=== PATIENT | male | born 1950 | race Caucasian/White ===

== ENCOUNTER 2017-09-03 15:29 | Inpatient (IN) | payer MEDICARE, OTHER ==
[~2017-09-03 15:29] MED LIST: ISOVUE-370 76%-LOCM 1 ML ONE
[2017-09-03 15:52] LABS: #Basophils 0.1 thou/uL (0.0-0.2); #Eosinphils 0.1 thou/uL (0.0-0.7); #Lymphocytes 1.8 thou/uL (1.20-3.40); #Neutrophils 11.1 thou/uL (1.40-6.50); %Basophils 0.5 % (0.0-1.0); %Eosinophils 0.9 % (0.0-10.0); %Monocytes 7.1 % (0.0-10.0); %Neutrophils 78.5 % (42.0-75.0); Hemoglobin 13.9 g/dL (14.0-18.0); Mean Corpuscular HGB CONC 35.3 g/dL (32.0-36.0); Mean Corpuscular Hemoglobin 32.9 pg (27.0-31.0); Mean Corpuscular Volume 93.3 fl (80.0-94.0); Platelet Count 229 thou/uL (130-400); RBC Distribution Width 11.5 % (11.5-14.5); Red Blood Cell (RBC) Count 4.23 mill/uL (4.70-6.10); White Blood Cell (WBC) Count 14.1 thou/uL (4.8-10.8)
[2017-09-03] MEDS ORDERED: Fentanyl 100 MCG/2 ML VIAL ONE ×2 (15:55→22:32)
[2017-09-03] MEDS ORDERED: methylPREDNISolone Sod Succ/PF 125 MG/2 ML VIAL ONE (15:55)
[2017-09-03] MEDS ORDERED: diphenhydrAMINE 50 MG/ML VIAL ONE (15:55)
[2017-09-03 15:58] LABS: PTT 32.3 SEC (22.9-36.1); Prothrombin Time 13.4 SEC (12.0-14.7)
[2017-09-03] MEDS ORDERED: Famotidine 40 MG/4 ML VIAL SLOW IVP SCH (16:00)
[2017-09-03 16:18] LABS: ALT (SGPT) 29 U/L (8-55); AST (SGOT) 40 U/L (5-34); Alkaline Phosphatase 70 U/L (40-150); Anion Gap 14 mmol/L (10-20); BUN (Urea Nitrogen) 26 mg/dL (8.4-25.7); Bilirubin, Total 0.5 mg/dL (0.2-1.2); Calc. Creatinine Clearance 0 mL/min (70-130); Calcium 9.4 mg/dL (7.8-10.44); Carbon Dioxide 20 mmol/L (23-31); Chloride 109 mmol/L (98-107); Estimated GFR-MDRD 39; Globulin 3.1 g/dL (2.4-3.5); Glucose 107 mg/dL (80-115); Potassium 4.4 mmol/L (3.5-5.1); Protein, Total 7.1 g/dL (5.8-8.1); Sodium 139 mmol/L (136-145)
[2017-09-03] MEDS ORDERED: Calcium Chloride 1 GM/10 ML Abboject SYRINGE ONE (16:40)
[2017-09-03] MEDS ORDERED: PROPOFOL 200 MG/20 ML VIAL ONE (16:40)
[2017-09-03] MEDS ORDERED: Lidocaine 1% PF 5 ML VIAL ONE (16:40)
[2017-09-03] MEDS ORDERED: PHENYLEPHRINE-NS 100 MCG/ML 10 ML SYRINGE ONE (16:40)
[2017-09-03] MEDS ORDERED: Succinylcholine Chloride 20 MG/ML 10 ml SYRINGE FS ONE (16:40)
[2017-09-03] MEDS ORDERED: ePHEDrine/0.9% NaCl/PF SYRINGE 50 mg/10 ml ONE ×2 (16:40→20:21)
[2017-09-03] MEDS ORDERED: Ondansetron ODT 4 MG TAB PO PRN (16:53)
[2017-09-03] MEDS ORDERED: Dextrose 5% in Water 1,000 ML IV PRN (16:53)
[2017-09-03] MEDS ORDERED: hydrALAZINE 20 MG/ML VIAL SLOW IVP PRN (16:53)
[2017-09-03] MEDS ORDERED: Ondansetron HCl/PF 4 MG/2 ML Vial IVP PRN ×2 (16:53→21:58)
[2017-09-03] MEDS ORDERED: Dextrose 50% Abboject 50 ML SYRINGE SLOW IVP PRN (16:53)
[2017-09-03] MEDS ORDERED: HumaLOG 300 UNITS/3 ML VIAL SC PRN (16:53)
[2017-09-03] MEDS ORDERED: Morphine 4 MG/ML VIAL SLOW IVP PRN (16:53)
--- NOTE | 2017-09-03 17:26 | RAD ---
LEFT WRIST RADIOGRAPHS THREE VIEWS: 09/03/17 PROVIDED CLINICAL HISTORY: Left wrist pain status post injury. FINDINGS: There is a transversely oriented displaced fracture of the distal radial metaphyseal region with apex palmar angulation at the fracture site and displacement of the distal fragment dorsally. Ulnar stylo id fracture is also noted. Vascular calcifications are seen. Degenerative changes are noted. Evidence for prior amputation of the fourth and fifth rays. IMPRESSION: Distal radial and ulnar fractures as above. POS: LISA
--- NOTE | 2017-09-03 17:55 | RAD ---
LEFT FEMUR TWO VIEWS: 09/03/17 HISTORY: Trauma. Left thigh pain. FINDINGS/IMPRESSION: There is a comminuted and angulated fracture involving the proximal shaft of the left femur with medi al displacement of the large distal fragment. POS: ROSA
--- NOTE | 2017-09-03 18:14 | CT ---
CT CERVICAL SPINE WITH CORONAL AND SAGITTAL REFORMATIONS: 09/03/17 HISTORY: Level II trauma, neck pain. FINDINGS/IMPRESSION: Multilevel degenerative changes are present in the cervical spine. No acute fracture or subluxation i s identified. Discussed over the telephone with ER physician, Dr. Trinity Mcdaniel at 5:03 p.m. POS: ROSA
--- NOTE | 2017-09-03 18:16 | CT ---
CT BRAIN WITHOUT CONTRAST: 09/03/17 HISTORY: Level II trauma, headache. FINDINGS: No evidence of acute infarct, hemorrhage, midline shift, or abnormal extra-axial fluid collections ar e seen. The ventricular size is appropriate and the basilar cisterns is patent. The bony calvarium is intact. There is mucosal disease in the paranasal sinuses. IMPRESSION: No CT evidence of acute intracranial process. Discussed over the telephone with ER physician, Dr. Trinity Mcdaniel at 5:03 p.m. POS: ROSA
[2017-09-03] MEDS ORDERED: CEFAZOLIN/Water 2 GM/20 ML SYRINGE ONE (18:35)
--- NOTE | 2017-09-03 18:36 | CT ---
CT CHEST WITH IV CONTRAST CT ABDOMEN WITH IV CONTRAST CT PELVIS WITH IV CONTRAST CORONAL AND SAGITTAL REFORMATIONS OF THE THORACOLUMBAR SPINE 09/03/17 FINDINGS: No mediastinal hematoma is seen. No definite intimal flap is seen in the suboptimally opacified thora cic aorta. No pleural or pericardial effusions are seen. No pulmonary contusions or pneumothoraces ar e identified. There are dependent changes in the posterior lung bases. There is evidence of old granu lomatous disease in the chest and spleen. The liver, spleen, pancreas, adrenal glands and kidneys are intact. There are right sided renal cysts. A punctate nonobstructing right renal calculus is present . No free air or free fluid is seen in the abdomen or pelvis. The prostate is enlarged. There is coloni c diverticulosis. Gallbladder and urinary bladder appear intact. There is a fracture involving the right transverse process of L3. There is a comminuted fracture invo lving the left proximal femur. There are degenerative changes in the spine. IMPRESSION: 1. No CT evidence of acute intrathoracic or solid organ injury. Fracture of the right transverse process of L3. 2. Comminuted fracture of left proximal femur. Discussed over the telephone with ER physician, Dr. Trinity Mcdaniel at 5:17 p.m. POS: [facility]
[2017-09-03] MEDS ORDERED: Fentanyl 250 MCG/5 ML VIAL ONE (19:20)
[2017-09-03] MEDS ORDERED: Rocuronium Bromide 50 MG/5 ML VIAL ONE (19:29)
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
[2017-09-03] MEDS ORDERED: Glycopyrrolate 0.2 MG/ML 5 ML SYRINGE ONE (21:57)
[2017-09-03] MEDS ORDERED: HYDROmorphone 2 MG/ML VIAL SLOW IVP PRN (21:58)
[2017-09-03] MEDS ORDERED: Promethazine HCl 25 MG/ML VIAL IM PRN (21:58)
[2017-09-03] MEDS ORDERED: Promethazine HCl 25 MG/ML VIAL SLOW IVP PRN (21:58)
[2017-09-03] MEDS ORDERED: HYDROmorphone 0.5 MG/0.5 ML SYRINGE ONE (22:42)
[2017-09-03 23:29] VITALS: BMI 32.0
[2017-09-04] MEDS: Sodium Chloride 0.9% 1,000 ML IV SCH ×2 (00:52→03:23)
[2017-09-04] MEDS: Senokot S 8.6-50 MG TAB PO SCH ×3 (00:52→21:19)
[2017-09-04] MEDS: Acetaminophen 500 MG TAB PO SCH ×5 (00:52→18:21)
[2017-09-04] MEDS: traMADol HCl 50 MG TAB PO SCH ×5 (00:52→18:21)
[2017-09-04] MEDS: CEFAZOLIN/Water 2 GM/20 ML SYRINGE SLOW IVP SCH ×2 (03:06→09:28)
[2017-09-04] MEDS ORDERED: CEFAZOLIN 2 GM in Sodium Chloride 0.9% 100 ML IVPB SCH (06:00)
[2017-09-04 06:55] LABS: #Lymphocytes 0.8 thou/uL (1.20-3.40); #Neutrophils 9.2 thou/uL (1.40-6.50); %Eosinophils 0.2 % (0.0-10.0); %Lymphocytes 6.8 % (21.0-51.0); %Monocytes 9.4 % (0.0-10.0); %Neutrophils 83.6 % (42.0-75.0); Hemoglobin 11.6 g/dL (14.0-18.0); Mean Corpuscular Hemoglobin 31.4 pg (27.0-31.0); Mean Platelet Volume 7.5 fL (7.4-10.4); Platelet Count 197 thou/uL (130-400); RBC Distribution Width 11.9 % (11.5-14.5); Red Blood Cell (RBC) Count 3.71 mill/uL (4.70-6.10)
[2017-09-04 07:07] LABS: Anion Gap 17 mmol/L (10-20); BUN (Urea Nitrogen) 41 mg/dL (8.4-25.7); Calc. Creatinine Clearance 44 mL/min (70-130); Calcium 8.8 mg/dL (7.8-10.44); Carbon Dioxide 16 mmol/L (23-31); Chloride 106 mmol/L (98-107); Estimated GFR-MDRD 28; Glucose 400 mg/dL (80-115); Magnesium 1.9 mg/dL (1.6-2.6); Phosphorus 5.8 mg/dL (2.3-4.7); Potassium 5.4 mmol/L (3.5-5.1); Sodium 134 mmol/L (136-145)
[2017-09-04] MEDS ORDERED: Sodium Bicarbonate 100 MEQ in Dextrose 5% in Water 1,000 ML IV SCH (09:00)
--- NOTE | 2017-09-04 09:11 | RAD ---
LEFT WRIST RADIOGRAPHS 2 VIEWS: DATE: 09/03/17. PROVIDED CLINICAL HISTORY: Post reduction. FINDINGS/IMPRESSION: Spot fluoroscopic frontal and lateral views of the left wrist demonstrate interval reduction of the p reviously described left distal radius fracture. Subsequent splint placement. POS: ROSA
--- NOTE | 2017-09-04 09:14 | RAD ---
TWO VIEWS OF THE LEFT FEMUR: DATE: 09/03/17. PROVIDED CLINICAL HISTORY: Femoral fracture. FINDINGS: Frontal and lateral spot fluoroscopic views with the left femur demonstrate internal fixation of prev iously described left proximal femoral shaft fracture with resultant improved alignment. POS: ROSA
[2017-09-04] MEDS ORDERED: Sodium Bicarbonate 150 MEQ in Sterile Water Injection 1,000 ML IV SCH (09:15)
[2017-09-04] MEDS ORDERED: Insulin Regular 300 UNITS/3 ML VIAL IVP SCH (09:15)
[2017-09-04] MEDS ORDERED: Insulin NPH/Reg Insulin Hm 300 UNITS/3 ML VIAL SC SCH (10:45)
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
[2017-09-04] MEDS: Sodium Bicarbonate 150 MEQ in Sterile Water Injection 1,000 ML IV SCH ×2 (12:56→22:56)
[2017-09-04] MEDS: Heparin 5,000 UNITS/ML VIAL SC SCH ×2 (14:52→21:19)
[2017-09-04] MEDS ORDERED: Sodium Chloride 0.9% 500 ML IV SCH (17:30)
[2017-09-04] MEDS: Insulin Regular 300 UNITS/3 ML VIAL SC PRN (18:26)
[2017-09-04] MEDS: Terazosin HCl 1 MG CAP PO SCH (21:18)
[2017-09-04] MEDS: Insulin NPH/Reg Insulin Hm 300 UNITS/3 ML VIAL SC SCH (21:25)
[2017-09-05] MEDS: Acetaminophen 500 MG TAB PO SCH ×5 (00:44→23:38)
[2017-09-05] MEDS: traMADol HCl 50 MG TAB PO SCH ×5 (00:44→23:38)
[2017-09-05 05:10] LABS: #Eosinphils 0.1 thou/uL (0.0-0.7); #Lymphocytes 1.2 thou/uL (1.20-3.40); #Monocytes 1.1 thou/uL (0.11-0.59); #Neutrophils 7.4 thou/uL (1.40-6.50); %Basophils 0.1 % (0.0-1.0); %Eosinophils 0.8 % (0.0-10.0); %Lymphocytes 12.4 % (21.0-51.0); %Monocytes 11.3 % (0.0-10.0); %Neutrophils 75.5 % (42.0-75.0); Hemoglobin 9.6 g/dL (14.0-18.0); Mean Corpuscular HGB CONC 34.3 g/dL (32.0-36.0); Mean Corpuscular Hemoglobin 32.7 pg (27.0-31.0); Mean Corpuscular Volume 95.4 fl (80.0-94.0); Mean Platelet Volume 7.6 fL (7.4-10.4); Platelet Count 153 thou/uL (130-400); RBC Distribution Width 11.6 % (11.5-14.5); Red Blood Cell (RBC) Count 2.93 mill/uL (4.70-6.10); White Blood Cell (WBC) Count 9.9 thou/uL (4.8-10.8)
[2017-09-05 05:41] LABS: Anion Gap 11 mmol/L (10-20); BUN (Urea Nitrogen) 32 mg/dL (8.4-25.7); Calc. Creatinine Clearance 72 mL/min (70-130); Calcium 7.8 mg/dL (7.8-10.44); Carbon Dioxide 25 mmol/L (23-31); Chloride 101 mmol/L (98-107); Estimated GFR-MDRD 51; Glucose 74 mg/dL (80-115); Magnesium 2.1 mg/dL (1.6-2.6); Phosphorus 3.1 mg/dL (2.3-4.7); Potassium 4.1 mmol/L (3.5-5.1); Sodium 133 mmol/L (136-145)
[2017-09-05] MEDS: Levothyroxine Sodium 25 MCG TAB PO SCH (06:14)
[2017-09-05] MEDS: Levothyroxine Sodium 112 MCG TAB PO SCH (06:15)
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
[2017-09-05] MEDS: Insulin NPH/Reg Insulin Hm 300 UNITS/3 ML VIAL SC SCH ×2 (08:28→20:19)
[2017-09-05] MEDS: Senokot S 8.6-50 MG TAB PO SCH ×2 (08:28→20:19)
[2017-09-05] MEDS: Heparin 5,000 UNITS/ML VIAL SC SCH ×3 (08:28→20:19)
[2017-09-05] MEDS ORDERED: Non-Formulary Item 1 EACH (Levothyroxine Sodium [Synthroid] 137 MCG) PO SCH (09:00)
[2017-09-05] MEDS ORDERED: Insulin NPH/Reg Insulin Hm 300 UNITS/3 ML VIAL SC SCH (09:00)
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
[2017-09-05] MEDS: Terazosin HCl 1 MG CAP PO SCH (20:18)
[2017-09-06] MEDS: traMADol HCl 50 MG TAB PO SCH ×3 (05:25→17:34)
[2017-09-06] MEDS: Levothyroxine Sodium 112 MCG TAB PO SCH (05:26)
[2017-09-06] MEDS: Levothyroxine Sodium 25 MCG TAB PO SCH (05:26)
[2017-09-06] MEDS: Acetaminophen 500 MG TAB PO SCH ×3 (05:26→17:34)
[2017-09-06 05:41] LABS: #Eosinphils 0.3 thou/uL (0.0-0.7); #Lymphocytes 1.3 thou/uL (1.20-3.40); #Monocytes 1.1 thou/uL (0.11-0.59); #Neutrophils 6.3 thou/uL (1.40-6.50); %Basophils 0.2 % (0.0-1.0); %Lymphocytes 14.5 % (21.0-51.0); %Monocytes 12.6 % (0.0-10.0); %Neutrophils 69.6 % (42.0-75.0); Hemoglobin 9.1 g/dL (14.0-18.0); Mean Corpuscular Hemoglobin 32.2 pg (27.0-31.0); Mean Corpuscular Volume 94.8 fl (80.0-94.0); Mean Platelet Volume 7.5 fL (7.4-10.4); Platelet Count 151 thou/uL (130-400); RBC Distribution Width 11.5 % (11.5-14.5); Red Blood Cell (RBC) Count 2.82 mill/uL (4.70-6.10)
[2017-09-06 06:03] LABS: Magnesium 2.1 mg/dL (1.6-2.6); Phosphorus 3.2 mg/dL (2.3-4.7)
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
[2017-09-06] MEDS: Senokot S 8.6-50 MG TAB PO SCH ×2 (07:57→20:02)
[2017-09-06] MEDS: Heparin 5,000 UNITS/ML VIAL SC SCH ×3 (07:57→20:03)
[2017-09-06] MEDS: Insulin NPH/Reg Insulin Hm 300 UNITS/3 ML VIAL SC SCH ×2 (08:02→21:30)
[2017-09-06 08:22] LABS: Anion Gap 14 mmol/L (10-20); BUN (Urea Nitrogen) 22 mg/dL (8.4-25.7); Calc. Creatinine Clearance 88 mL/min (70-130); Calcium 8.1 mg/dL (7.8-10.44); Carbon Dioxide 28 mmol/L (23-31); Chloride 94 mmol/L (98-107); Estimated GFR-MDRD 64; Glucose 122 mg/dL (80-115); Potassium 3.9 mmol/L (3.5-5.1); Sodium 132 mmol/L (136-145)
[2017-09-06] MEDS: Insulin Regular 300 UNITS/3 ML VIAL SC PRN ×3 (11:34→21:31)
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
[2017-09-06] MEDS: Terazosin HCl 1 MG CAP PO SCH (20:02)
[2017-09-06] MEDS: Tamsulosin HCl 0.4 MG CAP PO SCH (20:02)
[2017-09-07] MEDS: Acetaminophen 500 MG TAB PO SCH ×5 (00:25→19:38)
[2017-09-07] MEDS: traMADol HCl 50 MG TAB PO SCH ×5 (00:25→19:38)
[2017-09-07] MEDS: Levothyroxine Sodium 112 MCG TAB PO SCH (05:42)
[2017-09-07] MEDS: Levothyroxine Sodium 25 MCG TAB PO SCH (05:42)
[2017-09-07] MEDS: Sodium Chloride 0.9% 1,000 ML IV SCH ×2 (08:59→14:09)
[2017-09-07] MEDS: Senokot S 8.6-50 MG TAB PO SCH ×2 (09:01→20:57)
[2017-09-07] MEDS: Insulin NPH/Reg Insulin Hm 300 UNITS/3 ML VIAL SC SCH ×2 (09:01→20:43)
[2017-09-07] MEDS: Insulin Regular 300 UNITS/3 ML VIAL SC PRN (12:29)
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
[2017-09-07] MEDS ORDERED: Lidocaine 1% PF 5 ML VIAL ONE (15:14)
[2017-09-07] MEDS ORDERED: Glycopyrrolate 0.2 MG/ML 5 ML SYRINGE ONE (15:14)
[2017-09-07] MEDS ORDERED: PROPOFOL 200 MG/20 ML VIAL ONE (15:14)
[2017-09-07] MEDS ORDERED: Sodium Chloride 0.9% 10 ML ONE (15:15)
[2017-09-07] MEDS ORDERED: Bacitracin Zinc Ointment 30 gm TUBE ONE (15:15)
[2017-09-07] MEDS ORDERED: Bupivacaine PF 0.5% 30 ML VIAL ONE (15:15)
[2017-09-07] MEDS ORDERED: Fentanyl 100 MCG/2 ML VIAL ONE ×2 (15:53→18:21)
[2017-09-07] MEDS ORDERED: Promethazine HCl 25 MG/ML VIAL SLOW IVP PRN ×2 (16:31→18:06)
[2017-09-07] MEDS ORDERED: Ondansetron HCl/PF 4 MG/2 ML Vial IVP PRN ×2 (16:31→18:06)
[2017-09-07] MEDS ORDERED: Promethazine HCl 25 MG/ML VIAL IM PRN ×2 (16:31→18:06)
[2017-09-07] MEDS ORDERED: HYDROmorphone 2 MG/ML VIAL SLOW IVP PRN (18:06)
[2017-09-07] MEDS ORDERED: Morphine Sulfate 2 MG/ML SYRINGE SLOW IVP PRN (18:06)
[2017-09-07] MEDS ORDERED: Meperidine HCl/PF 25 MG/ML VIAL SLOW IVP PRN (18:06)
[2017-09-07] MEDS: Terazosin HCl 1 MG CAP PO SCH (20:57)
[2017-09-07] MEDS: Tamsulosin HCl 0.4 MG CAP PO SCH (20:57)
--- NOTE | 2017-09-07 21:03 | RAD ---
INTRAOPERATIVE IMAGING OF THE LEFT WRIST 09/07/17 HISTORY: Fracture status post open reduction and internal fixation. FINDINGS: There is a volar screw and plate fixation associated with the distal left radius. There is a percutan eous pin traversing the scapholunate interval. There is an obliquely oriented fracture at the ulnar s tyloid. The fourth and fifth fingers have been amputated at the level of the base of the metacarpal shafts. IMPRESSION: Intraoperative imaging as detailed above. POS: ROSA
[2017-09-08] MEDS: traMADol HCl 50 MG TAB PO SCH ×4 (00:23→17:27)
[2017-09-08] MEDS: Sodium Chloride 0.9% 1,000 ML IV SCH (00:24)
[2017-09-08] MEDS: Acetaminophen 500 MG TAB PO SCH ×4 (00:24→17:26)
[2017-09-08 05:37] LABS: Anion Gap 5 mmol/L (10-20); BUN (Urea Nitrogen) 18 mg/dL (8.4-25.7); Calc. Creatinine Clearance 98 mL/min (70-130); Calcium 8.2 mg/dL (7.8-10.44); Carbon Dioxide 29 mmol/L (23-31); Chloride 103 mmol/L (98-107); Estimated GFR-MDRD 72; Glucose 67 mg/dL (80-115); Potassium 4.1 mmol/L (3.5-5.1); Sodium 133 mmol/L (136-145)
[2017-09-08 05:56] LABS: Band 1 % (5-11); Eosinophils 3 % (0-10); Lymphocytes 13 % (21-51); MDiff Complete? YES; Mean Corpuscular HGB CONC 33.6 g/dL (32.0-36.0); Mean Corpuscular Hemoglobin 32.1 pg (27.0-31.0); Mean Corpuscular Volume 95.6 fl (80.0-94.0); Mean Platelet Volume 7.2 fL (7.4-10.4); Monocytes 14 % (0-10); Neutrophil 69 % (42-75); PLT Morphology Comment Appears Adequate; Platelet Count 195 thou/uL (130-400); RBC Distribution Width 11.6 % (11.5-14.5); Red Blood Cell (RBC) Count 2.79 mill/uL (4.70-6.10)
[2017-09-08] MEDS: Levothyroxine Sodium 112 MCG TAB PO SCH (06:08)
[2017-09-08] MEDS: Levothyroxine Sodium 25 MCG TAB PO SCH (06:08)
[2017-09-08] MEDS ORDERED: Acetaminophen/Codeine 30-300mg Tablet PO PRN ×2 (08:03)
[2017-09-08] MEDS: Senokot S 8.6-50 MG TAB PO SCH ×2 (08:33→20:06)
[2017-09-08] MEDS: Heparin 5,000 UNITS/ML VIAL SC SCH ×3 (08:33→20:07)
[2017-09-08] MEDS: Insulin NPH/Reg Insulin Hm 300 UNITS/3 ML VIAL SC SCH ×2 (08:34→20:07)
[2017-09-08] MEDS ORDERED: Amlodipine 5 MG TAB PO SCH (09:00)
[2017-09-08] MEDS ORDERED: Zolpidem Tartrate 5 MG TAB PO PRN (09:48)
[2017-09-08] MEDS: Gabapentin 300 MG CAP PO SCH ×2 (12:20→20:06)
[2017-09-08] MEDS: Insulin Regular 300 UNITS/3 ML VIAL SC PRN ×2 (12:56→17:27)
--- NOTE | 2017-09-08 13:05 | PRG-2 ---
DATE OF SERVICE: 09/08/2017 ATTENDING PHYSICIAN: Anders Kelly. SUBJECTIVE: Mr. Watson is a 67-year-old male who is hospital day #6, postop day #5, status post havin g windmill fall on him in which he sustained a left distal radius fracture and a left subtrochanteric femur fracture. The patient is status post open reduction and internal fixation of his distal radiu s yesterday and left intramedullary nailing of the femur fracture. Currently, the patient reports mo derate pain and difficulty with initiating sleep last night. He is tolerating a diet and he is leonel nuing to work with physical therapy and doing well. OBJECTIVE: VITAL SIGNS: Temperature 98.6, pulse 80, respiratory rate 16, oxygen 92% on room air, blood pressure 147/79. GENERAL: The patient is alert and oriented x4, in no acute distress, sitting up in a chair and holdi ng conversation well. HEENT: Atraumatic, normocephalic. CARDIOVASCULAR: Heart is regular rate and rhythm. CHEST: Unlabored breathing. Equal chest rise. MUSCULOSKELETAL: Left upper extremity has an orthopedic dressing in place, it is clean, dry, and int act. He is neurovascularly intact x4. ASSESSMENT: 1. Status post blunt trauma. 2. Left femur fracture, status post intramedullary nailing. 3. Left distal radius fracture status post open reduction and internal fixation, postop day #1. PLAN: The patient reports pain is not well controlled today. We will add gabapentin 300 mg b.i.d. f or improvement. We will continue to monitor his pain and provide supportive care including physical therapy, incentive spirometry and his home medications. Dr. Kelly who saw and examined the patient and formulated the plan with me.
[2017-09-08 20:05] VITALS: BP 144/69; TEMP 99.3
[2017-09-08] MEDS: Tamsulosin HCl 0.4 MG CAP PO SCH (20:06)
[2017-09-08] MEDS: Terazosin HCl 1 MG CAP PO SCH (20:06)
== END 2017-09-08 20:30 | DRG 481 ==
LOC: ERS 15:29 → SURG A 19:54 → SDC 20:19 → SURG A 22:36
PROVIDERS: ADMIT Orthopaedic Surgery; ATTEND Orthopaedic Surgery
PROC: 0QS706Z Reposition Left Upper Femur with Intramedullary Internal Fixation Device, Open Approach (ICD-10-PCS; principal; 2017-09-03)
PROC: 0PSJ04Z Reposition Left Radius with Internal Fixation Device, Open Approach (ICD-10-PCS; 2017-09-03)
DX: S72.22XA Displaced subtrochanteric fracture of left femur, initial encounter for closed fracture (principal); S52.502A Unspecified fracture of the lower end of left radius, initial encounter for closed fracture; E87.2 Acidosis; N17.9 Acute kidney failure, unspecified; W31.89XA Contact with other specified machinery, initial encounter; E11.9 Type 2 diabetes mellitus without complications; E78.5 Hyperlipidemia, unspecified; E66.9 Obesity, unspecified; Z85.828 Personal history of other malignant neoplasm of skin; Z79.4 Long term (current) use of insulin; Z88.8 Allergy status to other drugs, medicaments and biological substances; Z79.51 Long term (current) use of inhaled steroids; Z91.041 Radiographic dye allergy status; Z89.422 Acquired absence of other left toe(s); E87.5 Hyperkalemia; E83.39 Other disorders of phosphorus metabolism; N40.0 Benign prostatic hyperplasia without lower urinary tract symptoms; I10 Essential (primary) hypertension; Z79.899 Other long term (current) drug therapy
CPT/HCPCS: 36415; 36416; 70450; 71260; 72125; 74177; 76000; 76001; 80048; 80053; 83735; 84100; 85025; 85610; 85730; 86850; 86900; 86901; 93005; 96361; 96374; 96375; A4216; A4217; C1713; C1769; G0390; G8978-GP-CK; G8979-GP-CI; G8987-GO-CL; G8988-GO-CI; J1170; J1200; J1644; J1815; J2001; J2704; J2930; J3010; J3490; J7620; Q0162; S0020

== ENCOUNTER 2018-04-11 08:53 | Outpatient (CLI) | payer MEDICARE, OTHER ==
[2018-04-11 10:46] LABS: #Eosinphils 0.2 thou/uL (0.0-0.7); #Lymphocytes 1.4 thou/uL (1.20-3.40); #Monocytes 0.8 thou/uL (0.11-0.59); %Basophils 0.2 % (0.0-1.0); %Eosinophils 2.7 % (0.0-10.0); %Monocytes 9.7 % (0.0-10.0); %Neutrophils 70.5 % (42.0-75.0); Hemoglobin 14.2 g/dL (14.0-18.0); Mean Corpuscular HGB CONC 32.2 g/dL (32.0-36.0); Mean Corpuscular Volume 93.2 fL (78.0-98.0); Mean Platelet Volume 7.4 fL (7.4-10.4); Platelet Count 227 thou/uL (130-400); RBC Distribution Width 12.1 % (11.5-14.5); Red Blood Cell (RBC) Count 4.74 mill/uL (4.70-6.10); White Blood Cell (WBC) Count 8.5 thou/uL (4.8-10.8)
[2018-04-11 10:47] LABS: Bilirubin Negative (Negative); Blood, Urine Negative (Negative); Clarity CLEAR (Clear); Glucose, Urine (Dipstick) 250 mg/dL (Negative); Leukocyte Negative (Negative); Nitrite Negative (Negative); Protein, Urine (Dipstick) Negative (Neg-Trace); Specific Gravity, Urine 1.019 (1.002-1.036); Urobilinogen 0.2 mg/dL (0.2-1.0); pH, Urine 5.5 (5.0-9.0)
[2018-04-11 10:48] LABS: Bacteria/HPF None Seen HPF (None Seen); Hyaline Casts/LPF 0-3 HYALINE CAST LPF (0-3 Hyaline); RBC/HPF 0-3 HPF (0-3); Squamous Epithelial None Seen HPF (0-3); WBC/HPF None Seen HPF (0-3)
[2018-04-11 11:08] LABS: Anion Gap 11 mmol/L (10-20); BUN (Urea Nitrogen) 19 mg/dL (8.4-25.7); Calc. Creatinine Clearance 0 mL/min (70-130); Calcium 9.7 mg/dL (7.8-10.44); Carbon Dioxide 26 mmol/L (23-31); Chloride 105 mmol/L (98-107); Estimated GFR-MDRD 47; Glucose 202 mg/dL (80-115); Potassium 4.8 mmol/L (3.5-5.1)
--- NOTE | 2018-04-11 11:43 | RAD ---
PORTABLE AP CHEST RADIOGRAPH: Date: 04-11-18 History: Pre-operative evaluation. Comparison: None available. FINDINGS: Cardiac silhouette and pulmonary vasculature are within normal limits. Calcified lymph nodes are seen at the medial right lung base with calcified subcarinal lymph nodes. Lungs are clear. Vascular calci fication of the thoracic aorta. Osseous structures are intact. IMPRESSION: No acute cardiopulmonary process. POS: [facility]
[2018-04-12 01:31] LABS: Sodium 137 mmol/L (136-145)
--- NOTE | 2018-04-12 21:58 | EKG ---
Test Reason : Blood Pressure : / mmHG Vent. Rate : 069 BPM Atrial Rate : 069 BPM P-R Int : 156 ms QRS Dur : 094 ms QT Int : 392 ms P-R-T Axes : 009 079 016 degrees QTc Int : 420 ms Normal sinus rhythm Normal ECG When compared with ECG of 03-SEP-2017 17:19, Questionable change in QRS axis Confirmed by Yareli ROSENBAUM ([id number]) on 04/12/2018 9:57:53 PM Referred By: MARYAN Confirmed By:Yareli ROSENBAUM
== END 2018-04-11 08:54 | disposition home or self-care (01) ==
LOC: LABBT 08:53
PROVIDERS: ATTEND Orthopaedic Surgery Hand Surgery
DX: Z01.818 Encounter for other preprocedural examination (principal); M25.832 Other specified joint disorders, left wrist; M24.132 Other articular cartilage disorders, left wrist; T84.84XA Pain due to internal orthopedic prosthetic devices, implants and grafts, initial encounter
CPT/HCPCS: 71046; 80048; 81001; 85025; 93005; 93010

== ENCOUNTER 2018-04-14 06:43 | Day surgery (SDC) | payer MEDICARE, OTHER ==
[2018-04-11 09:28] VITALS: BMI 29.8
[2018-04-14] MEDS ORDERED: Bupivacaine PF 0.5% 30 ML VIAL ONE (08:28)
[2018-04-14] MEDS ORDERED: EPINEPHrine 1 MG/ML AMP ONE (08:28)
[2018-04-14] MEDS ORDERED: Fentanyl 100 MCG/2 ML VIAL ONE (08:29)
[2018-04-14] MEDS ORDERED: CEFAZOLIN 2 GM/50 ML BAG ONE (08:46)
[2018-04-14] MEDS ORDERED: Bupivacaine HCl 0.5%/Epinephrine 1:200,000/PF 30 ml Vial ONE (12:51)
[2018-04-14] MEDS ORDERED: ePHEDrine/0.9% NaCl/PF SYRINGE 50 mg/10 ml ONE (13:09)
[2018-04-14] MEDS ORDERED: Calcium Chloride 1 GM/10 ML Abboject SYRINGE ONE (13:09)
[2018-04-14] MEDS ORDERED: Ondansetron PF 4 MG/2 ML Vial ONE (13:09)
[2018-04-14] MEDS ORDERED: PROPOFOL 200 MG/20 ML VIAL ONE (13:09)
[2018-04-14] MEDS ORDERED: Lidocaine 1% PF 5 ML VIAL ONE (13:09)
[2018-04-14] MEDS ORDERED: PHENYLEPHRINE-NS 100 MCG/ML 10 ML SYRINGE ONE (13:09)
--- NOTE | 2018-04-14 13:54 | RAD ---
LEFT WRIST SIX VIEWS: HISTORY: Intraoperative films. COMPARISON: 09/07/2017 FINDINGS: This is a series of films, which show a plate and screws across the distal ulna. On the initial imag es, there is a plate and screws across a somewhat comminuted intraarticular distal radial fracture. On the final set of images, this hardware appears to have been removed. IMPRESSION: Intraoperative films, as described above. POS: [facility]
--- NOTE | 2018-04-16 21:15 | OP ---
DATE OF PROCEDURE: 04/14/2018 PREOPERATIVE DIAGNOSES: 1. Left triangular fibrocartilage complex tear. 2. Ulnocarpal impingement with almost 6 mm ulnar positive wrist. 3. possible intraarticular pattern screw subjacent location. POSTOPERATIVE DIAGNOSES: 1. No screw seen in intraarticular distal radius. 2. No step-off seen in chondral surface of the distal radius, just sampling small angulation between the primary radiostyloid portion of the Melone medical complex. 3. Marked synovitis. 4. Radial tear, only approximately 4 mm long and only partially complete, has a TFCC with the ulnar stretch into TFCC, but not on its lateral and without subluxation. 5. Left triangular fibrocartilage complex tear, radial to central. 6. Ulnocarpal ligament impingement. 7. Synovitis, left wrist. 8. Painful deeper implant. PROCEDURES PERFORMED: 1. Left wrist arthroscopic triangular fibrocartilage debridement. 2. Left wrist arthroscopic synovectomy. 3. Left distal radius plate removal, open. 4. C-arm supervision. 5. Left 4 mm open Rayhack ulnar shortening osteotomy. SPECIMEN: Plate with screws of distal radius fracture. TOURNIQUET TIME: 63 minutes. DESCRIPTION OF PROCEDURE: After successful general LMA technique in combination with a block given in a very excellent manner by anesthesiologist in the preop area, the patient underwent prepping and draping. This includes placing the arm in large traction with 2 finger traps; one in index and long and approximately 10 pounds of traction with the Arthrex arm post. C-arm supervision was done to confirm that the amount of ulnar positive wrist, which improved to be between 5 mm and 5.5 mm, which would necessitate at least a 4 mm shortening. Then, we established a panoramic view of the mid carpal joint and the radiocarpal/ulnocarpal joint using 4 different portals. We then visualized no abnormality in the midcarpal, but we did notice in the radiocarpal marked amount of synovitis, we did not see any evidence of screw penetration of the chondral surface and into the joint. We also did see a small angulation, but not a true step-off (less than 1 to 1.5 mm change) between the Melone medical complex and the radiostyloid complexes, but once the synovitis was cleared, we saw no scapholunate or lunotriquetral rupture, no separation, interaction, we also saw the triangular fibrocartilage tear was approximately 5 mm long, radial slightly more than central, which had marked fraying, so we debrided back to a stable rim. This was done with a shaver as was the synovectomy, which was complete arthroscopically. We now brought the C-arm back on the field, localized with a distal and proximal head of the ulna, so we can now avoid just the radioulnar joint and our shortening will be made. After inflating the tourniquet to 250 mmHg pressure, exsanguinated the limb, zigzag incision was made, began in 2 cm past the ulna styloid, carried this through skin and subcutaneous tissue until we had reached the fascia. The fascia was released in midline with [place] blade and using sharp dissection with [place] blade and a wood handle periosteal elevator, we elevated the periosteum to now see the ulnar portion of the ulna. We then placed a Rayhack plate in the prone position, the cut guide, with 3 holes proximal and used two 7 screws We then had the cut guide in place, we dissected behind the ulna where the saw would protrude and we were sure to protect the neurovascular bundle and tendons when we cut and made the 4 mm deficit. We removed this piece and detached the plate after making the cut and then with the compression device, we compressed this fracture to nearly anatomic with no step-off or whatsoever in the back. Then, we placed the first 3 screws to include replacement of the #1 screw with a locking screw, placed 2 screws distal, and then with 1 being locking and osteotomy cut was completely closed. These were all successful. We removed the cut guide complex from the screw slightly shorter to 3 mm on average at the third hole and the fourth hole after placing the lag screw successful. Radiographs showed the cut was completely invisible, we then prepared to perform the radial plate removal. We left this wound, packed with normal saline, sterile gauze and then we used a previous zigzag incision, carried through the skin and subcutaneous tissue to the level of the fascia. We protected the and thus protected the palmar cutaneous branch and then we made an incision on the radial portion of the pronator quadratus muscle. This was also spared and lifted off and protected. We then visualized the plate, removed all the scar, removed the distal 4 screws first and then removed all the screws proximal to the fracture line. Now we could elevate the plate easily. The motion has returned in an excellent fashion. Since there was no evidence of DRUJ abnormality, radiograph showed no subluxation of the static plane and with fluoroscopy, we felt that there is no need to perform further intervention except to release the tourniquet and have hemostasis. The portals were closed simple 4-0 nylon in an interrupted pattern. The ulna was closed over the plate using a 0 Vicryl undyed in a running fashion, 3-0 Monocryl and then the final closure was accomplished in epidermal fashion only after placing running Monocryl subcutaneously in all 3 wounds and then the patient left the operating room in a bulky dressing, sugar tong without evidence of anesthetic complications. Job ID: [id number]
== END 2018-04-14 14:37 | disposition home or self-care (01) ==
LOC: SDC 06:43
PROVIDERS: ATTEND Orthopaedic Surgery Hand Surgery
PROC: 0PBL0ZZ Excision of Left Ulna, Open Approach (ICD-10-PCS; principal; 2018-04-14)
PROC: 0MB64ZZ Excision of Left Wrist Bursa and Ligament, Percutaneous Endoscopic Approach (ICD-10-PCS; 2018-04-14)
PROC: 0RBP4ZZ Excision of Left Wrist Joint, Percutaneous Endoscopic Approach (ICD-10-PCS; 2018-04-14)
PROC: 0PPJ04Z Removal of Internal Fixation Device from Left Radius, Open Approach (ICD-10-PCS; 2018-04-14)
DX: M25.832 Other specified joint disorders, left wrist (principal); S63.592A Other specified sprain of left wrist, initial encounter; T84.84XA Pain due to internal orthopedic prosthetic devices, implants and grafts, initial encounter; M65.88 Other synovitis and tenosynovitis, other site; Z91.041 Radiographic dye allergy status; E11.9 Type 2 diabetes mellitus without complications; N28.9 Disorder of kidney and ureter, unspecified; Z98.890 Other specified postprocedural states; Z89.022 Acquired absence of left finger(s); Z79.4 Long term (current) use of insulin; Z79.82 Long term (current) use of aspirin
CPT/HCPCS: 20680; 25390; 29846; 73110; 76001; 82962; C1713 ×3; 36416; J0171; J0670; J2001; J2405; J2704; J3010; S0020